=== PATIENT | female | born 1930 ===

== ENCOUNTER 2019-01-02 22:36 | Emergency (ER) | payer MEDICARE, MEDICAID ==
[~2019-01-02] VITALS: Ht 152.4 cm; Wt 57.3 kg
[2019-01-02] MEDS ORDERED: morphine 4 MG/ML inj SYRINge IM ONE (23:55)
[2019-01-02] MEDS ORDERED: ondansetron 4mg rapidly disintigrating tab PO ONE (23:55)
[2019-01-02] MEDS ORDERED: LORazepam 1 MG tablet PO ONE (23:55)
--- NOTE | 2019-01-02 23:55 | NUR ---
Molder Feeder Leyda at bedside applying splint and sling to right arm.
[2019-01-03] MEDS ORDERED: HYDR-4383 PO (00:25)
[2019-01-03] MEDS ORDERED: ONDA4TAB6 PO (00:25)
[2019-01-03] MEDS ORDERED: HYDROcodone/acetaminophen 5mg/325mg tablet PO ONE (00:30)
[2019-01-03 01:16] VITALS: BP 141/87
== END 2019-01-03 00:39 | disposition home or self-care (01) ==
LOC: ER 22:37
DX: S42.201A Unspecified fracture of upper end of right humerus, initial encounter for closed fracture (principal); S00.12XA Contusion of left eyelid and periocular area, initial encounter; S00.81XA Abrasion of other part of head, initial encounter; I10 Essential (primary) hypertension; Z88.2 Allergy status to sulfonamides; Z79.899 Other long term (current) drug therapy; W10.9XXA Fall (on) (from) unspecified stairs and steps, initial encounter; Y93.89 Activity, other specified; Y92.89 Other specified places as the place of occurrence of the external cause; Y99.8 Other external cause status
CPT/HCPCS: 70450; 73020; 93005; 96372; 99284; J2270